=== PATIENT | female | born 1955 | race Caucasian/White ===

== ENCOUNTER 2016-08-17 18:15 | Emergency (ER) | payer OTHER ==
[~2016-08-17] VITALS: Ht 162.6 cm; Wt 83.9 kg
[2016-08-17 18:54] LABS: ABSOLUTE BASOPHIL COUNT 0 /CUMM (0.0-0.2); ABSOLUTE EOSINOPHIL COUNT 0.1 /CUMM (0.0-0.7); ABSOLUTE GRANULOCYTE CT 3.9 /CUMM (1.4-6.5); ABSOLUTE MONOCYTE COUNT 0.6 /CUMM (0.10-0.60); BASOPHIL % 0.5 % (0.0-2.0); EOSINOPHIL % 1.5 % (0-5); GRANULOCYTE % 50.6 % (42.2-75.2); HEMATOCRIT 39.1 % (37-47); MEAN CORPUSCULAR HGB 32.6 PG (27.0-31.0); MEAN CORPUSCULAR HGB CONC 33.1 G/DL (33.0-37.0); MEAN CORPUSCULAR VOLUME 98.4 FL (81.0-99.0); MEAN PLATELET VOLUME 7.9 FL (7.4-10.4); PLATELET COUNT 172 /CUMM (130-400); RBC DISTRIBUTION WIDTH 13.9 % (11.5-14.5); RED BLOOD CELL CT 3.98 /CUMM (4.20-5.40); WHITE BLOOD CELL COUNT 7.7 /CUMM (4.8-10.8)
--- NOTE | 2016-08-17 20:13 | ED AMS/SEIZURE/WEAK/DIZZY ---
History of Present Illness General Chief Complaint: Dizziness Stated Complaint: BIBA "DIZZY AND UNBALANCED" Source: patient Exam Limitations: no limitations Allergies Coded Allergies: NO KNOWN ALLERGIES (08/17/16) Triage Note: PT TO ER VIA AMBULANCE AFTER SUDDEN ONSET ABOUT 1.5 HOURS AGO OF DIZZINESS AND FEELING UNBALANCED , WITH NAUSEA AND SHORT PERIOD OF NUMBNESS DOWN L SIDE HEAD , SHOULDER AND ARM. DENIES NOW. STATES THAT SHE HAD A HISTORY OF INNER EAR CRYSTALS Triage Nurses Notes Reviewed? yes HPI: This patient is a 60 year old female with a past medical history including, "crystals in my ears," who presented for evaluation of acute onset of dizziness. She reported that around 5PM this evening she was opening her mail and started to feel dizzy, as if the room around her was spinning. She reported brief episode of numbness down the left side of her face and down her left arm which resolved. She denied any blurry vision, jaw pain, arm pain, chest pain, heart palpitations, shortness of breath, abdominal pain, nausea, vomiting, or any other symptoms. Reported that symptoms have decreased since onset. (DAVINA MYLES PA-C) Vital Signs & Intake/Output Vital Signs & Intake/Output Vital Signs Date Time Temp Pulse Resp B/P B/P Pulse O2 O2 Flow FiO2 Mean Ox Delivery Rate 08/17 2144 97.2 63 18 140/73 97 08/18 2007 100 Room Air 08/17 1825 97.3 58 18 157/93 96 Room Air ED Intake and Output 08/18 0000 08/17 1200 Intake Total Output Total Balance Patient 185 lb Weight Reconcile Medications Meclizine HCl 25 MG TABLET 1 TAB PO TIDPRN PRN dizziness (ELIAS PALOMO MD) Past History Travel History Traveled to [place] past 21 day No Medical History Any Pertinent Medical History? 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 No (DAVINA MYLES PA-C) Review of Systems Review of Systems Constitutional: Reports: no symptoms. EENTM: Reports: no symptoms. Respiratory: Reports: no symptoms. Cardiovascular: Reports: no symptoms. GI: Reports: no symptoms. Genitourinary: Reports: no symptoms. Musculoskeletal: Reports: no symptoms. Skin: Reports: no symptoms. Neurological/Psychological: Reports: see HPI. All Other Systems: Reviewed and Negative (DAVINA MYLES PA-C) Physical Exam Physical Exam General Appearance: well developed/nourished, no apparent distress, alert, awake Comments: General: Well-developed, well-nourished person in no aucte distress HEENT: Head normocephalic/atraumatic, PERRLA bilaterally with horizontal fatigueing nystagmus, moist mucous membranes Neck: Supple, no lymphadenopathy Cardiovascular: RRR with no murmurs Back: Normal inspection Respiratory: No respiratory distress, speaking in fll sentences Neuro: A&Ox3. Cranial nerves grossly intact. No aphasia, no facial droop, no unilateral weakness Psych: Normal mood and affect Core Measures ACS in differential dx? Yes CVA/TIA Diagnosis: No Severe Sepsis Present: No Septic Shock Present: No (DAVINA MYLES PA-C) Progress Differential Diagnosis: arrythmia, alcohol intoxication, anemia, benign positional vertigo, CVA/stroke, dehydration, drug intoxication, electrolyte imbalance, GI bleed, hypoglycemia, intracranial Hem., intracranial mass/tumor, labrynthitis, meningitis, Meniere's disease, multiple sclerosis, pneumonia, postural hypotension, post-traumatic vertigo, sepsis, seizure disorder, subarachnoid Hem., vertebrobasilar insuff Initial ED EKG: normal axis, normal intervals, normal p-waves, normal QRS complex, normal sinus rhythm, no ST T wave changes, 65 bpm Comments: Patient reported relief of her symptoms. (DAVINA MYLES PA-C) Plan of Care: Orders Procedure Date/time Status TROPONIN LEVEL 08/17 1828 Complete COMPREHENSIVE METABOLIC PANEL 08/17 1828 Complete CBC WITHOUT DIFFERENTIAL 08/17 1828 Complete EKG 08/17 1828 Active Laboratory Tests 08/17/16 1836: Anion Gap 10, Estimated GFR > 60, BUN/Creatinine Ratio 22.9, Glucose 97, Calcium 8.8, Total Bilirubin 0.5, AST 35, ALT 46, Alkaline Phosphatase 70, Troponin I < 0.01, Total Protein 5.9 L, Albumin 3.5, Globulin 2.4, Albumin/Globulin Ratio 1.5, CBC w Diff NO MAN DIFF REQ, RBC 3.98 L, MCV 98.4, MCH 32.6 H, RDW 13.9, MPV 7.9, Gran % 50.6, Lymphocytes % 39.0, Monocytes % 8.4, Eosinophils % 1.5, Basophils % 0.5, Absolute Granulocytes 3.9, Absolute Lymphocytes 3.0, Absolute Monocytes 0.6, Absolute Eosinophils 0.1, Absolute Basophils 0, PUBS MCHC 33.1 Departure Departure Disposition: HOME OR SELF CARE Condition: Stable Clinical Impression Primary Impression: Vertigo Referrals: MICHELLE PAYNE,LEONEL RAMIREZ (PCP/Family) Additional Instructions: take meclizine as prescribed for dizziness. return for any worsening symptoms or concerns. follow-up with your PCP. Departure Forms: Customer Survey General Discharge Information Prescriptions: Current Visit Scripts Meclizine HCl 1 TAB PO TIDPRN PRN dizziness #12 TAB (SHAMEKA GUPTA,DAVINA) PA/FRONT CLERK Co-Sign Statement Statement: ED Attending supervision documentation- I saw and evaluated the patient. I have also reviewed all the pertinent lab results and diagnostic results. I agree with the findings and the plan of care as documented in the PA's/FRONT CLERK's documentation. x I have reviewed the ED Record and agree with the PA's/FRONT CLERK's documentation. [] Additions or exceptions (if any) to the PAs/FRONT CLERK's note and plan are summarized below: [] (DEWEY PAYNE,ELIAS)
[2016-08-17] MEDS ORDERED: MECLIZINE HCL25 MG PO (21:25)
[2016-08-17 21:44] VITALS: BP 140/73
== END 2016-08-17 22:02 ==
LOC: ERH 18:15
PROVIDERS: Emergency Medicine
DX: R42 Dizziness and giddiness (principal)
CPT/HCPCS: 93005; 93010; 96360; 96361